=== PATIENT | female | born 1975 ===

== ENCOUNTER 2018-05-29 08:42 | Inpatient (IN) | payer OTHER ==
[~2018-05-29] VITALS: Ht 160 cm; Wt 90.7 kg
[2018-05-30] MEDS ORDERED: MINOCYCLINE HC100 M1 PO (15:50)
[2018-05-30] MEDS ORDERED: ZINC CHELATED50 MG PO (15:51)
[2018-05-30] MEDS ORDERED: [UNRECOGNIZED DRUG - OTHER] PO (15:51)
[2018-05-30] MEDS ORDERED: PREVACID30 M1 PO (15:52)
[2018-05-30] MEDS ORDERED: ZANTAC150 MG PO (15:52)
[2018-05-30] MEDS ORDERED: MEGACE ES625 MG/5 M PO (15:52)
[2018-05-30] MEDS ORDERED: TRAMADOL HCL50 MG PO (15:53)
[2018-05-30] MEDS ORDERED: SOLU-MEDRO125 MG/2 M IJ (15:53)
[2018-05-30] MEDS ORDERED: BENADRYL50 MG PO (15:53)
[2018-05-30] MEDS ORDERED: SODIUM FERRIC GLUCONATE COMPLEX (15:54)
[2018-06-04] MEDS ORDERED: PANTOPRAZOLE SO40 MG PO (12:24)
[2018-06-04] MEDS ORDERED: ZANTAC150 MG PO (12:24)
[2018-06-04] MEDS ORDERED: KETO10TA2 PO (12:24)
[2018-06-04] MEDS ORDERED: ULTRACET PO (12:24)
[2018-06-04] MEDS ORDERED: MOXIFLOXACIN H400 MG PO (12:24)
[2018-06-04] MEDS ORDERED: COLACE100 MG PO (12:24)
[2018-06-04] MEDS ORDERED: RIFAMPIN300 MG PO (12:24)
[2018-06-04] MEDS ORDERED: GAS RELIEF125 MG PO (12:24)
== END 2018-06-04 13:21 | disposition home or self-care (01) | DRG 743 ==
LOC: SURG 06-02 09:11 → O/R 06-02 09:11 → OB/GYN 06-02 09:45 → SURG 06-02 16:58
PROVIDERS: Obstetrics & Gynecology
PROC: 0UT20ZZ Resection of Bilateral Ovaries, Open Approach (ICD-10-PCS; 2018-06-02)
PROC: 0USG0ZZ Reposition Vagina, Open Approach (ICD-10-PCS; 2018-06-02)
PROC: 0DNU0ZZ Release Omentum, Open Approach (ICD-10-PCS; 2018-06-02)
PROC: 0UT90ZZ Resection of Uterus, Open Approach (ICD-10-PCS; principal; 2018-06-02 09:45)
DX: D25.0 Submucous leiomyoma of uterus (principal); N83.292 Other ovarian cyst, left side; N83.291 Other ovarian cyst, right side; L73.2 Hidradenitis suppurativa; D25.2 Subserosal leiomyoma of uterus; N80.0 Endometriosis of uterus; N83.12 Corpus luteum cyst of left ovary; N83.8 Other noninflammatory disorders of ovary, fallopian tube and broad ligament; D50.0 Iron deficiency anemia secondary to blood loss (chronic); E66.01 Morbid (severe) obesity due to excess calories; J45.998 Other asthma; Z86.19 Personal history of other infectious and parasitic diseases